=== PATIENT | female | born 1990 | race American Indian/Alaskan Native ===

== ENCOUNTER 2016-06-15 15:32 | Emergency (ER) | payer SELFPAY ==
[2016-06-15 20:51] LABS: Basophils % (Auto) 0.5 % (0.0-1.8); Hematocrit 41.5 % (30.3-42.9); Hemoglobin 13.2 gm/dl (10.1-14.3); Mean Corpuscular HGB Conc 32 % (30-34); Mean Corpuscular Hemoglobin 26 pg (28-32); Mean Corpuscular Volume 82 fl (79-97); Platelet Count 200 K/mm3 (140-440); Red Blood Count 5.05 M/mm3 (3.65-5.03); Red Cell Distribution Width 14.1 % (13.2-15.2); White Blood Count 5.3 K/mm3 (4.5-11.0)
[2016-06-15 20:52] LABS: Bilirubin,Urine NEG (Negative); Blood,Urine NEG (Negative); Ketones,Urine NEG (Negative); Leukocyte Esterase,Urine TR (Negative); Mucus,Urine FEW /HPF; Nitrite,Urine NEG (Negative); Protein,Urine <15 mg/dL mg/dL (Negative); Urobilinogen,Urine < 2.0 mg/dL (<2.0)
[2016-06-15 21:02] LABS: Amylase 66 units/L (27-131); Blood Urea Nitrogen 6 mg/dL (7-17); Calcium 9.1 mg/dL (8.4-10.2); Carbon Dioxide 24 mmol/L (22-30); Chloride 100.2 mmol/L (98-107); Glucose 113 mg/dL (65-100); Lipase 28 units/L (13-60); Potassium 3.5 mmol/L (3.6-5.0); Sodium 136 mmol/L (137-145)
[2016-06-15 21:05] LABS: Anion Gap 15 mmol/L; Creatine Kinase 80 units/L (30-135); Creatine Kinase MB < 1.0 ng/mL (0.0-4.0)
--- NOTE | 2016-06-15 21:34 | Emergency Department Report ---
HPI - General Chief Complaint: Pain General Time Seen by Provider: 06/15/16 20:23 - HPI HPI: 24-year-old female presents today with lower back and pelvic pain radiating to her right leg. Positive for history of sciatica and states her pain worsened yesterday. Denies numbness, weakness, paresthesias. Patient is also complaining of abdominal pain and reproducible chest pain. Denies worsening of chest pain with deep breaths. Positive for history of ovarian cysts. Denies injury or trauma. Tried Flexeril and NSAIDs without relief. Denies fever, chills, nausea, vomiting, shortness of breath, urinary symptoms, vaginal bleeding or discharge. ED Past Medical Hx - Past Medical History Previous Medical History?: Yes Additional medical history: back pain and sciatic nerve - Surgical History Past Surgical History?: No - Social History Smoking Status: Current Every Day Smoker Substance Use Type: Non Opiate Pain, Prescribed - Medications Home Medications: Home Medications Medication Instructions Recorded Confirmed Last Taken Type Cyclobenzaprine [Flexeril] 10 mg PO TID PRN #20 tablet 06/16/16 Unknown Rx Naproxen [Naprosyn] 500 mg PO BID #30 tablet 06/16/16 Unknown Rx Nitrofurantoin Leslie/M-Cryst 100 mg PO Q12HR #10 capsule 06/16/16 Unknown Rx [Macrobid CAP] ED Review of Systems ROS: Stated complaint: BACK/ABD/CHEST/LEG PAIN Other details as noted in HPI Constitutional: denies: chills, fever, malaise Eyes: denies: eye pain ENT: denies: ear pain, throat pain, congestion Respiratory: denies: cough, shortness of breath, wheezing Cardiovascular: chest pain (reproducible). denies: palpitations Endocrine: no symptoms reported Gastrointestinal: abdominal pain. denies: nausea, vomiting Genitourinary: denies: urgency, dysuria, frequency, hematuria Musculoskeletal: back pain, arthralgia Neurological: denies: headache, weakness, numbness, paresthesias Physical Exam - Physical Exam Vital Signs: Vital Signs 06/15/16 16:20 Temperature 99.8 F H Pulse Rate 106 H Respiratory 18 Rate Blood Pressure 129/80 O2 Sat by Pulse 99 Oximetry Physical Exam: GENERAL: The patient is well-developed and well-nourished. Patient is in NAD. HEAD: Normocephalic. Atraumatic. CHEST/LUNGS: Clear to auscultation throughout. HEART/CARDIOVASCULAR: Regular rate and rhythm. No murmurs, rubs or gallops. CHEST WALL: Positive for tenderness to palpation of anterior chest wall. ABDOMEN: Generalized tenderness to palpation. Bowel sounds normoactive. Positive for minimal guarding. Negative CVA tenderness bilaterally. EXTREMITIES: Full range of motion. Peripheral pulses intact. Capillary refill less than 2 seconds. BACK: Full ROM. No midline tenderness. Right-sided paraspinal tenderness of lumbar region. No tenderness to palpation of the sciatic notch bilaterally. Negative straight leg raise bilaterally. NEURO: Alert and oriented x 3. Normal gait. ED Course Vital Signs 06/15/16 16:20 Temperature 99.8 F H Pulse Rate 106 H Respiratory 18 Rate Blood Pressure 129/80 O2 Sat by Pulse 99 Oximetry ED Medical Decision Making - Lab Data Result diagrams: 06/15/16 20:38 06/15/16 20:38 Vital Signs 06/15/16 06/15/16 16:20 22:20 Temperature 99.8 F H 99.7 F H Pulse Rate 106 H 89 Respiratory 18 20 Rate Blood Pressure 129/80 Blood Pressure 115/70 [Right] O2 Sat by Pulse 99 98 Oximetry Lab Results 06/15/16 06/15/16 06/15/16 Range/Units 20:38 20:38 20:38 WBC 5.3 (4.5-11.0) K/mm3 RBC 5.05 H (3.65-5.03) M/mm3 Hgb 13.2 (10.1-14.3) gm/dl Hct 41.5 (30.3-42.9) % MCV 82 (79-97) fl MCH 26 L (28-32) pg MCHC 32 (30-34) % RDW 14.1 (13.2-15.2) % Plt Count 200 (140-440) K/mm3 Lymph % (Auto) 6.4 L (13.4-35.0) % Leslie % (Auto) 13.3 H (0.0-7.3) % Eos % (Auto) 1.0 (0.0-4.3) % Baso % (Auto) 0.5 (0.0-1.8) % Lymph # 0.3 L (1.2-5.4) K/mm3 Leslie # 0.7 (0.0-0.8) K/mm3 Eos # 0.1 (0.0-0.4) K/mm3 Baso # 0.0 (0.0-0.1) K/mm3 Seg Neutrophils % 78.8 H (40.0-70.0) % Seg Neutrophils # 4.2 (1.8-7.7) K/mm3 Sodium 136 L (137-145) mmol/L Potassium 3.5 L (3.6-5.0) mmol/L Chloride 100.2 (98-107) mmol/L Carbon Dioxide 24 (22-30) mmol/L Anion Gap 15 mmol/L BUN 6 L (7-17) mg/dL Creatinine 0.6 L (0.7-1.2) mg/dL Estimated GFR > 60 ml/min BUN/Creatinine Ratio 10.00 % Glucose 113 H (65-100) mg/dL Calcium 9.1 (8.4-10.2) mg/dL Total Creatine Kinase (30-135) units/L CK-MB (CK-2) (0.0-4.0) ng/mL CK-MB (CK-2) Rel Index (0-4) Troponin T (0.00-0.029) ng/mL Amylase 66 (27-131) units/L Lipase 28 (13-60) units/L Urine Color Yellow (Yellow) Urine Turbidity Cloudy (Clear) Urine pH 6.0 (5.0-7.0) Ur Specific [place] 1.010 (1.003-1.030) Urine Protein <15 mg/dl (Negative) mg/dL Urine Glucose (UA) Neg (Negative) mg/dL Urine Ketones Neg (Negative) mg/dL Urine Blood Neg (Negative) Urine Nitrite Neg (Negative) Urine Bilirubin Neg (Negative) Urine Urobilinogen < 2.0 (<2.0) mg/dL Ur Leukocyte Esterase Tr (Negative) Urine WBC (Auto) 2.0 (0.0-6.0) /HPF Urine RBC (Auto) 3.0 (0.0-6.0) /HPF U Epithel Cells (Auto) 4.0 (0-13.0) /HPF Urine Mucus Few /HPF Urine HCG, Qual Negative (Negative) 06/15/16 Range/Units 20:38 WBC (4.5-11.0) K/mm3 RBC (3.65-5.03) M/mm3 Hgb (10.1-14.3) gm/dl Hct (30.3-42.9) % MCV (79-97) fl MCH (28-32) pg MCHC (30-34) % RDW (13.2-15.2) % Plt Count (140-440) K/mm3 Lymph % (Auto) (13.4-35.0) % Leslie % (Auto) (0.0-7.3) % Eos % (Auto) (0.0-4.3) % Baso % (Auto) (0.0-1.8) % Lymph # (1.2-5.4) K/mm3 Leslie # (0.0-0.8) K/mm3 Eos # (0.0-0.4) K/mm3 Baso # (0.0-0.1) K/mm3 Seg Neutrophils % (40.0-70.0) % Seg Neutrophils # (1.8-7.7) K/mm3 Sodium (137-145) mmol/L Potassium (3.6-5.0) mmol/L Chloride (98-107) mmol/L Carbon Dioxide (22-30) mmol/L Anion Gap mmol/L BUN (7-17) mg/dL Creatinine (0.7-1.2) mg/dL Estimated GFR ml/min BUN/Creatinine Ratio % Glucose (65-100) mg/dL Calcium (8.4-10.2) mg/dL Total Creatine Kinase 80 (30-135) units/L CK-MB (CK-2) < 1.0 (0.0-4.0) ng/mL CK-MB (CK-2) Rel Index 1.2 (0-4) Troponin T < 0.010 (0.00-0.029) ng/mL Amylase (27-131) units/L Lipase (13-60) units/L Urine Color (Yellow) Urine Turbidity (Clear) Urine pH (5.0-7.0) Ur Specific [place] (1.003-1.030) Urine Protein (Negative) mg/dL Urine Glucose (UA) (Negative) mg/dL Urine Ketones (Negative) mg/dL Urine Blood (Negative) Urine Nitrite (Negative) Urine Bilirubin (Negative) Urine Urobilinogen (<2.0) mg/dL Ur Leukocyte Esterase (Negative) Urine WBC (Auto) (0.0-6.0) /HPF Urine RBC (Auto) (0.0-6.0) /HPF U Epithel Cells (Auto) (0-13.0) /HPF Urine Mucus /HPF Urine HCG, Qual (Negative) - Radiology Data Radiology results: report reviewed Chest x-ray: Normal heart, mediastinum/vessels, lungs/pleural space. No acute osseous abnormality. Pelvic ultrasound with Doppler: The uterus measures 6.23.64.9 cm and the endometrium measures 0.54 cm. The uterus shows no ultrasound abnormality. The right ovary measures 1.81.31.7 cm and shows no ultrasound abnormality. Blood flow is seen to the right ovary by Doppler. Left ovary measures 2.82.72.3 cm. There is a 2.0 cm nonspecific cyst in the left ovary. The left ovary shows no ultrasound abnormality otherwise. Blood flow is seen to the left ovary by Doppler. There is no ultrasound evidence of free fluid or focal fluid collection. - Medical Decision Making 25-year-old female presents today with lower back pain, pelvic pain, abdominal pain and reproducible chest wall tenderness. Her chest x-ray results are within normal limits. Her pelvic ultrasound reveals a 2.0 cm nonspecific cyst in the left ovary with no ultrasound evidence of free fluid. Her lab results are within normal limits and her urinalysis reveals trace of leukocyte esterase. Patient was given Valium and Toradol and reported symptomatic relief. Consulted with Dr. Dunbar. Patient is in no acute distress at this time. She will be discharged home and is encouraged to follow up with a primary care provider. She will be sent home on Flexeril and naproxen and is encouraged to return to the emergency room for any worsening symptoms. Critical care attestation.: If time is entered above; I have spent that time in minutes in the direct care of this critically ill patient, excluding procedure time. ED Disposition Clinical Impression: Chest wall tenderness UTI (urinary tract infection) Qualifiers: Urinary tract infection type: acute cystitis Hematuria presence: without hematuria Qualified Code(s): N30.00 - Acute cystitis without hematuria Low back pain Qualifiers: Chronicity: acute Back pain laterality: right Sciatica presence: with sciatica Sciatica laterality: sciatica of right side Qualified Code(s): M54.41 - Lumbago with sciatica, right side Ovarian cyst Qualifiers: Laterality: left Qualified Code(s): N83.202 - Unspecified ovarian cyst, left side Disposition: DISCHARGED TO HOME OR SELFCARE Is pt being admited?: No Does the pt Need Aspirin: No Condition: Stable Instructions: Chest Pain (ED), Ovarian Cyst (ED), Sciatica (ED), Urinary Tract Infection in Women (ED) Additional Instructions: Follow-up with primary care provider. Return to the emergency department if symptoms worsen. Prescriptions: Cyclobenzaprine [Flexeril] 10 mg PO TID PRN #20 tablet PRN Reason: Muscle Spasm Nitrofurantoin Leslie/M-Cryst [Macrobid CAP] 100 mg PO Q12HR #10 capsule Naproxen [Naprosyn] 500 mg PO BID #30 tablet Referrals: PRIMARY CAREMD [Primary Care Provider] - 3-[address] [facility] [Outside] - 3-5 Days BURKE MADDEN MD [Staff Physician] - 3-5 Days Forms: Work/School Release Form(ED), Accompanied Note Time of Disposition: 00:49
--- NOTE | 2016-06-15 21:46 | Ultrasound Report ---
FINAL REPORT PROCEDURE: US TRANSVAGINAL WITH DOPPLER TECHNIQUE: Real-time transvaginal sonography in multiple planes of the pelvis was performed with image documentation. Grayscale, color flow Doppler imaging and velocity spectral waveform analysis of the ovaries was employed (duplex imaging). CPT 62655 and 74883 HISTORY: Bilateral pelvic pain. Evaluate for possible ovarian cyst rupture. COMPARISON: No prior studies are available for comparison. FINDINGS: The uterus measures 6.2 x 3.6 x 4.9 centimeters and the endometrium measures 0.54 centimeters. The uterus shows no ultrasound abnormality. The right ovary measures 1.8 x 1.3 x 1.7 centimeters and shows no ultrasound abnormality. Blood flow is seen to the right ovary by Doppler. Left ovary measures 2.8 x 2.7 x 2.3 centimeters. There is a 2.0 centimeter nonspecific cyst in the left ovary. The left ovary shows no ultrasound abnormality otherwise. Blood flow is seen to the left ovary by Doppler. There is no ultrasound evidence of free fluid or focal fluid collection IMPRESSION: 1. There is a 2.0 centimeter nonspecific cyst in the left ovary. 2. The right ovary and the uterus show no ultrasound abnormality. 3. There is no ultrasound evidence of free fluid.
--- NOTE | 2016-06-15 21:56 | Ultrasound Report ---
FINAL REPORT PROCEDURE: US PELVIC TRANSABDOMINAL WITH DOPPLER TECHNIQUE: Real-time transabdominal sonography in multiple planes of the pelvis was performed with image documentation. Grayscale, color flow Doppler imaging and velocity spectral waveform analysis of the ovaries was employed (duplex imaging). CPT 29879 and 85652 HISTORY: Bilateral pelvic pain. Evaluate for ovarian cyst rupture COMPARISON: No prior studies are available for comparison. FINDINGS: The uterus measures 6.2 x 3.6 x 4.9 centimeters and the endometrium measures 0.54 centimeters. The uterus shows no ultrasound abnormality. The right ovary measures 1.8 x 1.3 x 1.7 centimeters and shows no ultrasound abnormality. Blood flow is seen to the right ovary by Doppler. Left ovary measures 2.8 x 2.7 x 2.3 centimeters. There is a 2.0 centimeter nonspecific cyst in the left ovary. The left ovary shows no ultrasound abnormality otherwise. Blood flow is seen to the left ovary by Doppler. There is no ultrasound evidence of free fluid or focal fluid collection. IMPRESSION: 1. There is a 2.0 centimeter nonspecific cyst in the left ovary. 2. The right ovary and the uterus show no ultrasound abnormality. 3. There is no ultrasound evidence of free fluid.
[2016-06-15] MEDS ORDERED: VALIUM PO ONE (22:12)
[2016-06-15] MEDS ORDERED: TORADOL IM ONE (22:12)
[2016-06-15 22:22] VITALS: BP 115/70
--- NOTE | 2016-06-16 00:25 | XRay Report ---
FINAL REPORT PROCEDURE: XR CHEST ROUTINE 2V TECHNIQUE: PA and lateral chest radiographs were obtained. CPT 06677 HISTORY: chest pain COMPARISON: No prior studies are available for comparison. FINDINGS: Heart: Normal. Mediastinum/Vessels: Normal. Lungs/Pleural space: Normal. Bony thorax: No acute osseous abnormality. Other: IMPRESSION: Normal examination.
== END 2016-06-16 02:30 | disposition home or self-care (01) ==
LOC: ED 15:32
DX: R07.89 Other chest pain (principal); M54.41 Lumbago with sciatica, right side; N83.202 Unspecified ovarian cyst, left side; N30.00 Acute cystitis without hematuria; F17.200 Nicotine dependence, unspecified, uncomplicated
CPT/HCPCS: 36415; 71020; 76830; 76856; 80048; 81001; 81025; 82150; 82550; 82553; 83690; 84484; 85025; 93005; 93010; 96372; 99284; J1885